=== PATIENT | male | born 1935 | race Caucasian/White ===

== ENCOUNTER 2019-04-02 13:27 | Observation (INO) | payer MEDICARE, BC ==
--- NOTE | 2019-04-02 13:58 | CT ---
EXAM: CT brain without contrast HISTORY: Near syncope left-sided weakness and slurred speech COMPARISON: 01/03/2004 TECHNIQUE: Multiple contiguous axial images were obtained and a CT of the brain without contrast. FINDINGS: There are scattered hypodensities in the subcortical and periventricular white matter consi stent with small vessel ischemic disease. There is no evidence of hydrocephalus, intracranial hemorrhage, or extra-axial fluid collection. The calvarium and overlying soft tissues are unremarkable. The visualized paranasal sinuses and masto id air cells are well aerated. IMPRESSION: No evidence of acute intracranial abnormality
[2019-04-02 14:22] LABS: #Basophils 0.1 thou/uL (0.0-0.2); #Eosinphils 0.3 thou/uL (0.0-0.7); #Lymphocytes 1.2 thou/uL (1.20-3.40); #Neutrophils 4.7 thou/uL (1.40-6.50); %Basophils 0.9 % (0.0-1.0); %Eosinophils 3.9 % (0.0-10.0); %Lymphocytes 17.1 % (21.0-51.0); %Monocytes 13.1 % (0.0-10.0); Hemoglobin 14.9 g/dL (14.0-18.0); Mean Corpuscular Hemoglobin 31.8 pg (27.0-31.0); Mean Corpuscular Volume 96.6 fL (78.0-98.0); Mean Platelet Volume 6.9 fL (7.4-10.4); Platelet Count 254 thou/uL (130-400); RBC Distribution Width 12.8 % (11.5-14.5); Red Blood Cell (RBC) Count 4.69 mill/uL (4.70-6.10); White Blood Cell (WBC) Count 7.3 thou/uL (4.8-10.8)
[2019-04-02 14:35] LABS: INR-International Normal Ratio 2.5; PTT 39.2 SEC (22.9-36.1); Prothrombin Time 27.2 SEC (12.0-14.7)
[2019-04-02 14:44] LABS: ALT (SGPT) 18 U/L (8-55); AST (SGOT) 20 U/L (5-34); Alkaline Phosphatase 58 U/L (40-110); Anion Gap 10 mmol/L (10-20); BUN (Urea Nitrogen) 17 mg/dL (8.4-25.7); Bilirubin, Total 1.2 mg/dL (0.2-1.2); Calc. Creatinine Clearance 0 mL/min (70-130); Calcium 9.5 mg/dL (7.8-10.44); Carbon Dioxide 27 mmol/L (23-31); Chloride 100 mmol/L (98-107); Estimated GFR-MDRD 55; Globulin 2.6 g/dL (2.4-3.5); Glucose 97 mg/dL (83-110); Potassium 4.1 mmol/L (3.5-5.1); Protein, Total 6.6 g/dL (5.8-8.1); Sodium 133 mmol/L (136-145)
[2019-04-02] MEDS ORDERED: Acetaminophen 325 MG TAB PO PRN (17:22)
[2019-04-02] MEDS ORDERED: Ondansetron ODT 4 MG TAB SL PRN (17:22)
[2019-04-02] MEDS ORDERED: Ondansetron PF 4 MG/2 ML Vial IVP PRN (17:22)
[2019-04-02] MEDS: Simvastatin 5 MG TAB PO SCH (20:26)
--- NOTE | 2019-04-03 00:13 | HP ---
PRIMARY CARE PHYSICIAN: At [facility]. CHIEF COMPLAINT: Left-sided weakness, slurred speech. HISTORY OF PRESENT ILLNESS: Mr. Cuadra is a pleasant 84-year-old man, who reported to the emergency room via EMS after he had a slow fall, the nurse at the assisted living in the cafeteria today denies any injury or weakness. When EMS arrived, they noticed that he had some left-sided weakness with some slurred speech. By the time they a loaded him up into the ambulance, his symptoms had resolved. He presented to the emergency room for further workup. Past medical history pertinent for hypertension, has an AICD, artificial heart valve, skin cancer. Brain CT showed no acute findings. Lab work largely unremarkable. Sodium was 133. The patient is on Coumadin and his INR today was 2.5, hemoglobin 14.9, hematocrit 45.3, and platelet count is 254. NIH score was 0 in the emergency room. The patient was admitted to the stroke unit for further evaluation. REVIEW OF SYSTEMS: The patient reports focal left-sided weakness, mental status changes. Reports speech changes which have now resolved. Denied any chest pain, shortness of breath, abdominal pain, nausea, or vomiting. All systems reviewed and are negative unless mentioned in the HPI. PAST MEDICAL HISTORY: As above in HPI. PAST SURGICAL HISTORY: Pacemaker. 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 PSYCHIATRIC HISTORY: None. SOCIAL HISTORY: Denies any alcohol or drug use. Has no smoking history. Lives in [place] in the independent living. FAMILY HISTORY: Not significant to current symptoms. ALLERGIES: NONE. HOME MEDICATIONS: 1. Cilostazol 100 mg p.o. b.i.d. 2. Hydrochlorothiazide 25 mg p.o. daily. 3. Metoprolol 50 mg p.o. at bedtime. 4. Pravastatin 20 mg p.o. daily. 5. Ramipril 10 mg p.o. daily. 6. Coumadin 4 mg p.o. at bedtime. PHYSICAL EXAMINATION: VITAL SIGNS: Blood pressure is 124/87, pulse is 83, respirations are 20, temperature is 98.5, pO2 sats are 100% on room air. CONSTITUTIONAL: The patient is alert and oriented to person, place, and time, is in no apparent distress. HEENT: Head is atraumatic and normocephalic. Eyes; pupils are equal, round, and reactive to light. Eyelids are normal to inspection. ENT, mouth exam is normal. Mucous membranes are moist. NECK: Trachea is midline. There is no tenderness. RESPIRATORY/CHEST: Breath sounds are clear. Chest expansion is equal. CARDIOVASCULAR: Regular heart rate and rhythm. There is an audible click, but no rubs or gallops. ABDOMEN: Nontender. Bowel sounds are heard. BACK: Normal range of motion. No tenderness. EXTREMITIES: Upper extremities; normal inspection, normal range of motion, radial pulses are equal. Lower extremities; normal inspection, normal range of motion, strength is normal, pedal pulses are equal bilaterally. There is no edema noted. NEURO: There is no focal weakness or sensory deficits. The patient is alert and oriented to person, place, and time. NIH is 0. SKIN: Warm, dry, normal in color. PSYCH: Has a normal affect. DIAGNOSTIC STUDIES: EKG shows paced rhythm, beats per minute 82, conduction normal, ST segments normal, T-waves are normal. ASSESSMENT AND PLAN: 1. Transient ischemic attack. The patient is on Coumadin and INR is therapeutic. We will repeat it in the a.m. Obtain an MRI of the brain without contrast, carotid Dopplers, echocardiogram. Ask PT, OT for evaluation. We are going to ask Neurology to consult. This patient is already on Coumadin and a statin and he had transient ischemic attack symptoms and we would appreciate Dr. Blancas' recommendations. We will do neuro checks q.4 hours. Aspirin daily. 2. Chronic anticoagulation use with Coumadin. INR is therapeutic. We will repeat INR in the morning. Continue the Coumadin. 3. Hypertension. We will restart home medications. We will trend. 4. GI prophylaxis has been started. 5. Hospital course dependent on clinical findings. Job ID: [id number]
[2019-04-03 04:03] LABS: INR-International Normal Ratio 2.4; Prothrombin Time 26.4 SEC (12.0-14.7)
[2019-04-03 04:25] LABS: Cardiac Risk 4.1 (Less than 4.5)
[2019-04-03] MEDS: Ramipril 5 MG CAP PO SCH (08:13)
[2019-04-03] MEDS: Cilostazol 100 MG TAB PO SCH ×2 (08:13→16:46)
--- NOTE | 2019-04-03 08:50 | ULT ---
BILATERAL CAROTID DUPLEX ULTRASOUND: DATE: 04/03/19 HISTORY: TIA. TECHNIQUE: Whitney scale ultrasound with color flow and spectral Doppler imaging of the extracranial carotid artery systems performed bilaterally. FINDINGS: The left ICA and ECA are not clearly seen. The distal ICA is not seen. There is plaque formation on either side. The peak systolic velocity in the right ICA measures 28 cm/second with an end-diastolic velocity of 1 0 cm/second and a systolic ratio of 0.51. The peak systolic velocity in the left ICA measures 30 cm/second with an end-diastolic velocity of 13 cm/second and a systolic ratio of 0.75. Flow in both vertebral arteries remains antegrade. IMPRESSION: No definite evidence of hemodynamically significant stenosis. POS: ELISABETH
[2019-04-03] MEDS ORDERED: Hydrochlorothiazide 25 MG TAB PO SCH (09:00)
[2019-04-03 10:46] LABS: Anion Gap 11 mmol/L (10-20); BUN (Urea Nitrogen) 15 mg/dL (8.4-25.7); Calc. Creatinine Clearance 64 mL/min (70-130); Calcium 9.9 mg/dL (7.8-10.44); Carbon Dioxide 28 mmol/L (23-31); Chloride 96 mmol/L (98-107); Estimated GFR-MDRD 62; Glucose 111 mg/dL (83-110); Potassium 3.6 mmol/L (3.5-5.1); Sodium 131 mmol/L (136-145)
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
[2019-04-03] MEDS ORDERED: Warfarin Sodium 2 MG TAB PO SCH (17:00)
--- NOTE | 2019-04-03 18:25 | RAD ---
Exam: Chest one view HISTORY:Evaluate pacemaker Comparison: None FINDINGS: Pacing device: Left-sided transvenous pacemaker with lead positioned over the right atrium, right dago tricle and coronary sinus. There are sternotomy wires and mediastinal clips. Cardiac silhouette:Cardiomegaly Aorta: Unremarkable Pulmonary vessels: Normal Costophrenic angles: Clear LUNGS: No masses or consolidation. Pneumothorax: None Osseous abnormalities: None IMPRESSION: 1. No acute cardiopulmonary process 2. Left-sided transvenous pacemaker with lead position as detailed above.
[2019-04-03] MEDS: Simvastatin 5 MG TAB PO SCH (19:37)
[2019-04-03] MEDS: Acetaminophen 325 MG TAB PO PRN (19:37)
--- NOTE | 2019-04-03 19:43 | CON ---
DATE OF CONSULTATION: 04/03/2019 INDICATION FOR CONSULTATION: An 84-year-old patient, who suffered apparently a TIA and some left-sided weakness. He had some slurred speech. He has apparently had a history of AICD or pacemaker implantation. He is uncertain as to which one it is, and feeling by the size of it, it may be a pacemaker. Uncertain as to whether or not, he has had this for how many years or he may have not had changed out actually. He has had an echocardiogram, which shows a normal ejection fraction, so most likely this is a pacemaker. He has left atrial dilatation. He has undergone a CT scan, which was unremarkable. Carotid study was also unremarkable. At times, it shows that he has what appears to be a biventricular pacemaker. He has two spikes of the ventricular lead in the ventricle on the QRS and it appears that this is a biventricular device. At some times also with some of the tracing, it appears that he maybe in a sinus rhythm, and at other times, it appears to be atrial fibrillation. He may have underlying atrial fibrillation and he is pacing majority of the time. In looking back over his telemetry as well as his EKG, he appears to be pacing 100% of the time, uncertain as to whether or not, he has undergone an AVJ ablation in the past and whether he has other chronic problems. It does occasionally in one of the EKGs, appears he did have an atrial spike, so it was unclear exactly what he has and whether or not he has had an ablation in the past or not. At times, he does appear to be in sinus, but obviously it is unclear due to the artifact noted on the telemetry leads. This appears to be also ventricular pacing. It is difficult that we have not been able to determine whether or not this is a [employer] or [employer] device. He has not had a chest x-ray. I cannot tell whether by it because he has not had a chest x-ray, whether or not this is a pacemaker or defibrillator, but again it appears that most likely this is a pacemaker. He did undergo the echocardiogram. He most likely has a bioprosthetic valve instead of a mechanical valve, but again I am uncertain if he is on Coumadin. If he has a mechanical valve, then obviously, the treatment would be Coumadin. If he has a bioprosthetic valve, then we could consider some other type of medication for his anticoagulation. For oral anticoagulation, if he has atrial fibrillation, I would leave this up to the discretion of his primary switchboard operator receptionist, who is Dr. Robin Sheets at [facility]. He denies any symptoms at this time. He does have a history of hypertension, hypercholesterolemia. He denies any previous cardiac history otherwise, except for mitral valve replacement. I am uncertain as to when that was replaced and why. PAST MEDICAL HISTORY: Significant for an either pacemaker or AICD implant. He has had status post mitral valve replacement. He has had hypertension. He has skin cancers. SOCIAL HISTORY: He is . He has children, who are alive and well. There is no alcohol or tobacco use. FAMILY HISTORY: Unremarkable for any early heart disease. ALLERGIES: NONE. MEDICATIONS: Prior to admission included, 1. Cilostazol. 2. Hydrochlorothiazide. 3. Metoprolol. 4. Pravastatin. 5. Ramipril. 6. Coumadin. REVIEW OF SYSTEMS: He has hearing loss. Otherwise, 12-point review of systems is unremarkable, except what is noted in the history of present illness. PHYSICAL EXAMINATION: GENERAL: Reveals a well-developed, well-nourished gentleman in no acute distress. VITAL SIGNS: Blood pressure is 125/75, heart rate is 84 and regular. He is afebrile. Respiratory rate is 18. HEENT: Shows head to be normocephalic and atraumatic. Oral mucosa is pink and moist. NECK: Carotid pulses are present. There are no bruits. There is no JVD. The thyroid is not enlarged. CHEST: Clear to auscultation. There are no rales, rhonchi, or wheezing noted. CARDIOVASCULAR: Reveals a regular rate and rhythm at this time. There are no significant murmurs, heaves, thrills, bruits, or rubs. He does have a soft systolic murmur at the apex. Otherwise, no significant abnormalities are noted. ABDOMEN: Soft and nontender, somewhat obese and slightly tympanic, but no palpable masses or tenderness are noted. EXTREMITIES: Femoral pulses are present. Popliteal pulses are present. I could not palpate pedal pulses. There is no significant lower extremity edema. NEUROLOGIC: The patient at this time appears to be fully intact. LABORATORY DATA: Shows a hemoglobin of 14.9, WBC of 7.3, platelet count of 254, 000. His INR is 2.4. TSH is 1.2. Troponin I is negative. Potassium is 3.6, BUN of 15, creatinine is 1.12. IMPRESSION: 1. Elderly gentleman with a transient ischemic attack of uncertain etiology. If he has a mechanical valve, the INRs on the low side, would increase the Coumadin level up to maintain INR between 3 and 3.5. Otherwise, if he has a bioprosthetic valve, he could either go with different Eliquis or some Pradaxa or any other medication to his liking. 2. History of pacemaker or automatic implantable cardioverter-defibrillator implant. I believe this most likely is a pacemaker. We will try to determine which the device this is and of which company, so that we can interrogate the device. 3. History of a mitral valve replacement, but the most likely this may be a bioprosthetic valve. I will review the echocardiogram again to see if I can determine if this is a mechanical valve or not. 4. History of hypertension. This is under good control at this time. 5. History of hypercholesterolemia. We will continue his pravastatin. Further care of the patient will depend on whether or not we see any other abnormalities, but otherwise depending on the what type of valve it is, whether or not we will continue him on the same Coumadin. He is already taking Pletal as well as aspirin and he has been continued on the warfarin. At this time, cardiac status appears to be otherwise stable. I have no further recommendations until I know what kind of device this gentleman has and whether or not he has a bioprosthetic or mechanical mitral valve. Job ID: [id number] [facility]
--- NOTE | 2019-04-03 22:30 | PDOC.HOSPP ---
- Subjective Encounter Date: 04/03/19 Encounter Time: 14:00 Subjective: The patient states he wants to go home, feels great. No longer has any weakness in arms. Pacemaker attempted to be interrogated but patient did not know the appropriate company. He has pacemaker placed, but he doesn't remember why. Son doesn't know why either Slurred speech that he had yesterday resolved within three hours. - Objective Vital Signs & Weight: Vital Signs (12 hours) Temp Pulse Resp BP BP BP Pulse Ox 04/03/19 20:00 97.8 F 83 16 111/69 95 04/03/19 15:29 98.7 F 84 18 125/75 94 L 04/03/19 13:00 137/91 H 121/87 126/85 04/03/19 12:00 98.1 F 80 16 116/77 96 Weight Weight 209 lb 11.2 oz I&O: 04/02/19 04/03/19 04/04/19 06:59 06:59 06:59 Intake Total 510 Balance 510 Result Diagrams: 04/02/19 14:13 04/03/19 10:12 Hospitalist ROS - Review of Systems Constitutional: denies: fever, chills - Medication Medications: Active Medications Generic Name Dose Route Start Last Admin Trade Name Freq PRN Reason Stop Dose Admin Acetaminophen 650 mg 04/03/19 19:34 04/03/19 19:37 Tylenol PO 650 mg Q6H PRN Administration Headache/Fever Cilostazol 100 mg 04/03/19 07:30 04/03/19 16:46 Pletal PO 100 mg BID-AC DAVE Administration Hydrochlorothiazide 25 mg 04/03/19 09:00 04/03/19 08:13 Hydrochlorothiazide PO 25 mg DAILY DAVE Administration Metoprolol Succinate 50 mg 04/02/19 21:00 04/03/19 19:38 Toprol Xl PO 50 mg HS DAVE Administration Ramipril 10 mg 04/03/19 09:00 04/03/19 08:13 Altace PO 10 mg DAILY DAVE Administration Simvastatin 10 mg 04/02/19 21:00 04/03/19 19:37 Zocor PO 10 mg HS DAVE Administration Warfarin Sodium 4 mg 04/03/19 17:00 04/03/19 16:47 Coumadin PO 4 mg SuTuThFrSa DAVE Administration - Exam General Appearance: NAD, awake alert Eye: PERRL, anicteric sclera ENT: normocephalic atraumatic, no oropharyngeal lesions Neck: supple, symmetric, no JVD, no thyromegaly Heart: RRR, no murmur, no gallops, no rubs Respiratory: CTAB, no wheezes, no rales, no ronchi Gastrointestinal: soft, non-tender, non-distended, normal bowel sounds, no hepatomegaly, no splenomegaly, no bruit Extremities: no cyanosis, no clubbing, no edema Skin: normal turgor, no lesions Neurological: cranial nerve grossly intact, normal sensation to touch, no weakness, no focal deficits, no new deficit Musculoskeletal: normal tone, normal strength, no muscle wasting Hosp A/P - Plan CT brain: no acute disease Carotid Doppler: no significant stenosis Chest X ray: left sided transvenous pacemaker ECHO: EF 55-60%, mild - moderate AR, LA dilation, mild TR This is an 84 year old male with past medidcal history of pacemaker for unclear reason who presented with left sided weakness and slurred speech TIA - patient presented with left sided weakness and slurred speech, now resolved. CT head showed no acute disease. MRI brain can't be done due to pacemaker. ECHO shows no thrombus - neurology consulted, recommended cardiology evaluation. Cardiology consulted, currently pending pacemaker interrogation - coumadin to be adjusted depending on type of valve (bioprosthetic or mechanical) - continue aspirin, statin Hyponatremia - sodium 131, will d/c HCTZ Hypertension - on HCTZ, ramipril, metoprolol - will d/c HCTZ due to soft BP 92-110 and hyponatremia - continue ramipril and metoprolol PAD? - continue cilostazol Dispo: likely d/c tomorrow pending pacemaker interrogation
[2019-04-03] MEDS ORDERED: Aspirin 81 mg Enteric Coated Tablet PO SCH (23:00)
[2019-04-04 06:13] LABS: Hemoglobin 14.9 g/dL (14.0-18.0); Mean Corpuscular HGB CONC 33.1 g/dL (32.0-36.0); Mean Corpuscular Hemoglobin 31.5 pg (27.0-31.0); Mean Platelet Volume 7.4 fL (7.4-10.4); Platelet Count 246 thou/uL (130-400); RBC Distribution Width 12.6 % (11.5-14.5); Red Blood Cell (RBC) Count 4.74 mill/uL (4.70-6.10); White Blood Cell (WBC) Count 10.5 thou/uL (4.8-10.8)
[2019-04-04 06:32] LABS: Anion Gap 13 mmol/L (10-20); BUN (Urea Nitrogen) 15 mg/dL (8.4-25.7); Calc. Creatinine Clearance 68 mL/min (70-130); Calcium 9.6 mg/dL (7.8-10.44); Carbon Dioxide 22 mmol/L (23-31); Chloride 100 mmol/L (98-107); Estimated GFR-MDRD 67; Glucose 101 mg/dL (83-110); Sodium 131 mmol/L (136-145)
[2019-04-04] MEDS: Ramipril 5 MG CAP PO SCH (08:21)
[2019-04-04] MEDS: Cilostazol 100 MG TAB PO SCH (08:21)
[2019-04-04 08:35] LABS: INR-International Normal Ratio 2.1
[2019-04-04] MEDS ORDERED: Aspirin 81 mg Enteric Coated Tablet PO SCH ×2 (09:00)
--- NOTE | 2019-04-04 09:52 | PDOC.CPN ---
- Subjective Date: 04/04/19 Time: 09:52 Interval history: The pt seen and examined. No overnight events. No cardiac complaints. He would like to go home since he does not have any symptoms at this moment. - Objective Allergies/Adverse Reactions: Allergies Allergy/AdvReac Type Severity Reaction Status Date / Time No Known Allergies Allergy Verified 04/02/19 17:36 Visit Medications: Current Medications Acetaminophen (Tylenol) 650 mg PO Q6H PRN PRN Reason: Headache/Fever Last Admin: 04/03/19 19:37 Dose: 650 mg Aspirin (Ecotrin) 81 mg PO DAILY [facility] Last Admin: 04/04/19 08:21 Dose: 81 mg Cilostazol (Pletal) 100 mg PO BID-AC [facility] Last Admin: 04/04/19 08:21 Dose: 100 mg Metoprolol Succinate (Toprol Xl) 50 mg PO [facility] Last Admin: 04/03/19 19:38 Dose: 50 mg Ramipril (Altace) 10 mg PO DAILY [facility] Last Admin: 04/04/19 08:21 Dose: 10 mg Simvastatin (Zocor) 10 mg PO [facility] Last Admin: 04/03/19 19:37 Dose: 10 mg Sodium Chloride (Flush - Normal Saline) 10 ml IVF PRN PRN PRN Reason: Saline Flush Warfarin Sodium (Coumadin) 4 mg PO SuTuThFrSa [facility] Last Admin: 04/03/19 16:47 Dose: 4 mg Warfarin Sodium (Coumadin) 2 mg PO [facility] Vital Signs & Weight: Vital Signs Temp Pulse Resp BP BP Pulse Ox 04/04/19 08:21 119/78 04/04/19 08:00 98.5 F 85 18 119/78 96 04/04/19 04:00 98.2 F 83 16 121/89 94 L 04/03/19 23:57 98 F 81 16 113/72 97 Weight 209 lb 11.2 oz - Physical Exam General: alert & oriented x3 HEENT: mucus membranes moist Neck: supple neck Cardiac: regular rate and rhythm, S1/S2 Lungs: clear to auscultation, decreased breath sounds Abdomen: unremarkable Extremities: no cyanosis Skin: clear Musculoskeletal: normal range of motion - Labs Result Diagrams: 04/04/19 05:46 04/04/19 05:46 Troponin/CKMB Troponin I Less than 0.010 ng/mL (< 0.028) 04/02/19 14:13 - Telemetry Sinus rhythms and dysrhythmias: other (V paced) - Assessment/Plan Assessment/Plan: 1. TIA with Lt weakness and dysphagia - resolved in [address] head negative; On Coumadin for unknown reason (possible due to Hx of MVR?) 2. HTN - stable with current med 3. HLD - 4. Hx of MVR with unknown type of valve (bioprosthetic or mechanical?) - since the pt is on Coumadin, possible Mechanical? If so, INR should be 2.5-3.5. 5. [employer] BiV PM by Dr Smith at [facility] in 08/2017 (according to PM interrogation report) - No abnormal arrhythmia episodes; 6. Hyponatremia - HCTZ was d/sachin MAR reviewed * From Cardiac standpoint, the pt is stable to d/c home. The pt should f/u with Dr Sheets at [facility] for cardiac F/u within 2-4 wks. * The pt must notify his doctor who manage his INR level (since unknow reason, his Coumadin dose cannot be adjusted at this moment)
[2019-04-04 12:12] VITALS: BP 146/83; TEMP 98.6
[2019-04-04] MEDS: Acetaminophen 325 MG TAB PO PRN (12:30)
--- NOTE | 2019-04-05 08:11 | CON ---
DATE OF CONSULTATION: ADDENDUM: It appears that this gentleman does not have MVR. In my opinion, there is no mitral valve replacement. It appears that perhaps this is an aortic valve that he has had replaced and appears to be a bioprosthetic valve and appears to be functioning normally. Job ID: [id number] [facility]
[2019-04-05] MEDS ORDERED: Warfarin Sodium 2 MG TAB PO SCH (17:00)
== END 2019-04-04 14:39 | disposition home or self-care (01) ==
LOC: ERS 13:27 → 2SE 16:09
PROVIDERS: ADMIT Internal Medicine; ATTEND Internal Medicine
DX: G45.9 Transient cerebral ischemic attack, unspecified (principal); I10 Essential (primary) hypertension; E78.5 Hyperlipidemia, unspecified; E78.00 Pure hypercholesterolemia, unspecified; E87.1 Hypo-osmolality and hyponatremia; Z79.01 Long term (current) use of anticoagulants; Z79.899 Other long term (current) drug therapy; Z95.0 Presence of cardiac pacemaker; Z95.2 Presence of prosthetic heart valve
CPT/HCPCS: 70450; 71045; 80048 ×2; 80053; 80061; 84443; 84484; 85025; 85027; 85610 ×3; 85730; 93005; 93306; 93880; 99285; G0378 ×4; 36415

== ENCOUNTER 2021-04-08 02:06 | Inpatient (IN) | payer MEDICARE ==
[2021-04-08 02:51] LABS: Hemoglobin 14.4 g/dL (14.0-18.0); Mean Corpuscular HGB CONC 34.1 g/dL (32.0-36.0); Mean Corpuscular Hemoglobin 32.3 pg (27.0-31.0); Mean Corpuscular Volume 94.8 fL (78.0-98.0); Mean Platelet Volume 6.7 fL (7.4-10.4); Platelet Count 338 thou/uL (130-400); RBC Distribution Width 12.2 % (11.5-14.5); Red Blood Cell (RBC) Count 4.46 mill/uL (4.70-6.10); White Blood Cell (WBC) Count 10.3 thou/uL (4.8-10.8)
[2021-04-08 03:08] LABS: Band 1 % (5-11); Lymphocytes 4 % (21-51); MDiff Complete? YES; Monocytes 15 % (0-10); Neutrophil 80 % (42-75); Platelet Morphology Comment Appears Adequate; RBC Morphology Normal
[2021-04-08 03:24] LABS: ALT (SGPT) 27 U/L (8-55); AST (SGOT) 34 U/L (5-34); Albumin 3.3 g/dL (3.4-4.8); Alkaline Phosphatase 55 U/L (40-110); BUN (Urea Nitrogen) 13 mg/dL (8.4-25.7); Bilirubin, Total 1.2 mg/dL (0.2-1.2); Calc. Creatinine Clearance 0 mL/min (70-130); Calcium 8.8 mg/dL (7.8-10.44); Carbon Dioxide 22 mmol/L (23-31); Chloride 100 mmol/L (98-107); Glucose 117 mg/dL (83-110); Magnesium 1.6 mg/dL (1.6-2.6); Potassium 3.9 mmol/L (3.5-5.1); Protein, Total 6.3 g/dL (5.8-8.1); Sodium 132 mmol/L (136-145)
[2021-04-08 03:56] LABS: Anion Gap 14 mmol/L (10-20)
[2021-04-08] MEDS ORDERED: Diltiazem HCl 125 MG, Admixture Fee 1 EACH in Sodium Chloride 0.9% 100 ML IVPB SCH (04:45)
[2021-04-08 04:58] LABS: Bacteria/HPF None Seen HPF (None Seen); Bilirubin Negative (Negative); Blood, Urine 2+ (Negative); Clarity Clear (Clear); Glucose, Urine (Dipstick) Normal (Negative); Ketone, Urine Negative (Negative); Leukocyte Negative Leu/uL (Negative); Nitrite Negative (Negative); Protein, Urine (Dipstick) 50 mg/dL (Neg-Trace); RBC/HPF 21-50 HPF (0-3); Squamous Epithelial 0-3 HPF (0-3); Urobilinogen Normal mg/dL (Less than 2); pH, Urine 6.5 (5.0-9.0)
[2021-04-08] MEDS ORDERED: Acetaminophen 500 MG TAB PO PRN (05:52)
[2021-04-08 05:59] LABS: Troponin I 0.041 ng/mL (< 0.028)
[2021-04-08 06:36] LABS: INR-International Normal Ratio 4.6
[2021-04-08 07:53] VITALS: BMI 28.0
[2021-04-08] MEDS ORDERED: Atorvastatin Calcium 10 MG TAB PO SCH (09:00)
[2021-04-08] MEDS ORDERED: Amlodipine 5 MG TAB PO SCH (09:00)
[2021-04-08] MEDS ORDERED: Amlodipine 10 MG TAB PO SCH (09:00)
[2021-04-08] MEDS: Multivit, Therapeutic 1 TAB PO SCH (09:16)
[2021-04-08] MEDS: Magnesium Oxide 400 MG TAB PO SCH (09:16)
[2021-04-08] MEDS: Ramipril 5 MG CAP PO SCH (09:16)
[2021-04-08 09:30] LABS: Troponin I 0.023 ng/mL (< 0.028)
[2021-04-08] MEDS: Sodium Chloride 1 GM TAB PO SCH ×2 (11:08→21:36)
[2021-04-08] MEDS ORDERED: Diltiazem HCl SR 60 mg Capsule PO SCH (14:00)
[2021-04-08] MEDS ORDERED: FLU VACC QS2021-22(65YR UP)/PF 240 MCG/0.7 ML SYRINGE IM ONE (16:00)
[2021-04-08 16:52] LABS: SARS-CoV-2 PCR by NAA Not Detected (NotDetected)
[2021-04-08] MEDS ORDERED: Warfarin Sodium 2 MG TAB PO SCH ×2 (17:00)
[2021-04-08] MEDS: Atorvastatin Calcium 10 MG TAB PO SCH (20:21)
[2021-04-09 05:23] LABS: Anion Gap 13 mmol/L (10-20); BUN (Urea Nitrogen) 15 mg/dL (8.4-25.7); Calc. Creatinine Clearance 67 mL/min (70-130); Calcium 8.8 mg/dL (7.8-10.44); Carbon Dioxide 21 mmol/L (23-31); Chloride 102 mmol/L (98-107); Glucose 135 mg/dL (83-110); Potassium 3.8 mmol/L (3.5-5.1); Sodium 132 mmol/L (136-145)
[2021-04-09 05:40] LABS: Hemoglobin 14.3 g/dL (14.0-18.0); Lymphocytes 4 % (21-51); MDiff Complete? YES; Mean Corpuscular HGB CONC 35.7 g/dL (32.0-36.0); Mean Corpuscular Hemoglobin 33.4 pg (27.0-31.0); Mean Corpuscular Volume 93.5 fL (78.0-98.0); Monocytes 9 % (0-10); Neutrophil 85 % (42-75); Platelet Count 345 thou/uL (130-400); Platelet Morphology Comment Appears Adequate; RBC Distribution Width 12.1 % (11.5-14.5); RBC Morphology Normal; Reactive Lymphocytes 2 % (0-10); Red Blood Cell (RBC) Count 4.27 mill/uL (4.70-6.10); White Blood Cell (WBC) Count 12.8 thou/uL (4.8-10.8)
[2021-04-09] MEDS ORDERED: Magnesium 2 GM/50 ML 2 GM in Premix Bag 1 BAG IVPB SCH (09:15)
[2021-04-09] MEDS: Multivit, Therapeutic 1 TAB PO SCH (09:34)
[2021-04-09] MEDS: Magnesium Oxide 400 MG TAB PO SCH (09:34)
[2021-04-09] MEDS: Ramipril 5 MG CAP PO SCH (09:34)
[2021-04-09 10:18] LABS: Prothrombin Time 46.9 sec (12.0-14.7)
[2021-04-09 10:21] LABS: Magnesium 1.9 mg/dL (1.6-2.6)
[2021-04-09] MEDS: Sodium Chloride 1 GM TAB PO SCH ×2 (10:29→20:52)
[2021-04-09 10:41] LABS: INR-International Normal Ratio 4.9
[2021-04-09] MEDS: Atorvastatin Calcium 10 MG TAB PO SCH (20:52)
[2021-04-10 05:53] LABS: Band 4 % (5-11); Hemoglobin 14.8 g/dL (14.0-18.0); Lymphocytes 11 % (21-51); MDiff Complete? YES; Mean Corpuscular HGB CONC 34.1 g/dL (32.0-36.0); Mean Corpuscular Hemoglobin 32.2 pg (27.0-31.0); Mean Corpuscular Volume 94.5 fL (78.0-98.0); Mean Platelet Volume 6.8 fL (7.4-10.4); Monocytes 14 % (0-10); Neutrophil 71 % (42-75); Platelet Count 366 thou/uL (130-400); Platelet Morphology Comment Appears Adequate; RBC Distribution Width 12.2 % (11.5-14.5); RBC Morphology Normal; White Blood Cell (WBC) Count 12.2 thou/uL (4.8-10.8)
[2021-04-10 06:05] LABS: Anion Gap 14 mmol/L (10-20); BUN (Urea Nitrogen) 13 mg/dL (8.4-25.7); Calc. Creatinine Clearance 74 mL/min (70-130); Calcium 8.2 mg/dL (7.8-10.44); Carbon Dioxide 20 mmol/L (23-31); Chloride 103 mmol/L (98-107); Glucose 105 mg/dL (83-110); Potassium 3.5 mmol/L (3.5-5.1); Sodium 133 mmol/L (136-145)
[2021-04-10 09:04] LABS: INR-International Normal Ratio 3.9; PTT 74.3 sec (22.9-36.1); Prothrombin Time 39.5 sec (12.0-14.7)
[2021-04-10] MEDS: Ramipril 5 MG CAP PO SCH (09:49)
[2021-04-10] MEDS: Sodium Chloride 1 GM TAB PO SCH (09:50)
[2021-04-10] MEDS: Multivit, Therapeutic 1 TAB PO SCH (09:50)
[2021-04-10] MEDS: Magnesium Oxide 400 MG TAB PO SCH (09:50)
[2021-04-10 12:11] VITALS: BP 157/89; TEMP 98.9
[2021-04-10] MEDS ORDERED: FLU VACC QS2021-22(65YR UP)/PF 240 MCG/0.7 ML SYRINGE IM ONE (16:00)
== END 2021-04-10 14:34 | DRG 309 ==
LOC: ERS 02:06 → 2NO 04:41
PROVIDERS: ADMIT Family Medicine; ATTEND Family Medicine
DX: I48.20 Chronic atrial fibrillation, unspecified (principal); E87.1 Hypo-osmolality and hyponatremia; Z20.822 Contact with and (suspected) exposure to COVID-19; Z66 Do not resuscitate; I44.7 Left bundle-branch block, unspecified; I25.10 Atherosclerotic heart disease of native coronary artery without angina pectoris; I73.9 Peripheral vascular disease, unspecified; E83.42 Hypomagnesemia; I10 Essential (primary) hypertension; G47.31 Primary central sleep apnea; E78.5 Hyperlipidemia, unspecified; Z88.1 Allergy status to other antibiotic agents; Z79.01 Long term (current) use of anticoagulants; Z79.899 Other long term (current) drug therapy; Z95.2 Presence of prosthetic heart valve; S51.811A Laceration without foreign body of right forearm, initial encounter; X58.XXXA Exposure to other specified factors, initial encounter
CPT/HCPCS: 36415; 70450; 72125; 80048; 80053; 81003; 81015; 83735; 83880; 84484; 85025; 85610; 85730; 93005; J3475; J3490; U0003; U0005

== ENCOUNTER 2021-05-18 17:26 | Inpatient (IN) | payer MEDICARE ==
[2021-05-18] MEDS ORDERED: Boostrix 0.5 ML (Tdap) VIAL ONE (18:08)
[2021-05-18 18:30] LABS: #Basophils 0.1 thou/uL (0.0-0.2); #Eosinphils 0.5 thou/uL (0.0-0.7); #Lymphocytes 1.2 thou/uL (1.20-3.40); #Monocytes 0.9 thou/uL (0.11-0.59); #Neutrophils 7.3 thou/uL (1.40-6.50); %Basophils 0.5 % (0.0-1.0); %Eosinophils 4.8 % (0.0-10.0); %Lymphocytes 12.2 % (21.0-51.0); %Neutrophils 73.6 % (42.0-75.0); Mean Corpuscular HGB CONC 32.7 g/dL (32.0-36.0); Mean Corpuscular Hemoglobin 30.7 pg (27.0-31.0); Mean Corpuscular Volume 93.8 fL (78.0-98.0); Mean Platelet Volume 6.9 fL (7.4-10.4); Platelet Count 353 thou/uL (130-400); RBC Distribution Width 13.5 % (11.5-14.5); Red Blood Cell (RBC) Count 5.21 mill/uL (4.70-6.10)
[2021-05-18 18:44] LABS: INR-International Normal Ratio 1.6; PTT 28.5 sec (22.9-36.1); Prothrombin Time 18.8 sec (12.0-14.7)
[2021-05-18 18:51] LABS: ALT (SGPT) 23 U/L (8-55); AST (SGOT) 25 U/L (5-34); Albumin 4.4 g/dL (3.4-4.8); Alkaline Phosphatase 103 U/L (40-110); Anion Gap 13 mmol/L (10-20); BUN (Urea Nitrogen) 13 mg/dL (8.4-25.7); Calc. Creatinine Clearance 0 mL/min (70-130); Calcium 10.1 mg/dL (7.8-10.44); Carbon Dioxide 24 mmol/L (23-31); Chloride 101 mmol/L (98-107); Globulin 3.8 g/dL (2.4-3.5); Glucose 125 mg/dL (83-110); Potassium 4.2 mmol/L (3.5-5.1); Protein, Total 8.2 g/dL (5.8-8.1); Sodium 134 mmol/L (136-145)
[2021-05-18] MEDS ORDERED: Fentanyl 100 MCG/2 ML VIAL ONE (18:59)
[2021-05-18] MEDS ORDERED: Promethazine HCl 25 MG/ML VIAL IM PRN (19:19)
[2021-05-18] MEDS ORDERED: Lorazepam 2 MG/ML VIAL SLOW IVP PRN (19:19)
[2021-05-18] MEDS ORDERED: Ondansetron PF 4 MG/2 ML Vial IVP PRN (19:19)
[2021-05-18] MEDS ORDERED: traMADol HCl 50 MG TAB PO PRN (19:21)
[2021-05-18] MEDS ORDERED: Morphine 4 MG/ML VIAL SLOW IVP PRN (19:30)
[2021-05-18] MEDS ORDERED: Acetaminophen 500 MG TAB ONE (19:40)
[2021-05-18] MEDS ORDERED: Phytonadione 5 MG TAB PO SCH ×2 (19:45→22:00)
[2021-05-18 20:16] LABS: Bilirubin Negative (Negative); Blood, Urine Negative (Negative); Clarity Clear (Clear); Glucose, Urine (Dipstick) Normal (Negative); Ketone, Urine Negative (Negative); Leukocyte Negative Leu/uL (Negative); Nitrite Negative (Negative); Protein, Urine (Dipstick) Negative (Neg-Trace); Specific Gravity, Urine 1.013 (1.002-1.036); Urobilinogen Normal mg/dL (Less than 2); pH, Urine 6.5 (5.0-9.0)
[2021-05-18] MEDS ORDERED: Cilostazol 100 MG TAB PO SCH (21:00)
[2021-05-18] MEDS ORDERED: Metoprolol Tartrate 50 MG TAB PO SCH (23:00)
[2021-05-18] MEDS: Acetaminophen 500 MG TAB PO SCH (23:26)
[2021-05-19] MEDS: Famotidine/PF 20 mg/2ml Vial SLOW IVP SCH ×3 (00:05→20:37)
[2021-05-19] MEDS: traMADol HCl 50 MG TAB PO SCH ×4 (00:06→16:59)
[2021-05-19] MEDS: Atorvastatin Calcium 10 MG TAB PO SCH ×2 (00:06→20:36)
[2021-05-19] MEDS: Senokot S 8.6-50 MG TAB PO SCH ×4 (00:08→20:36)
[2021-05-19] MEDS: Acetaminophen 500 MG TAB PO SCH ×4 (01:25→20:39)
[2021-05-19 02:47] VITALS: BMI 24.0
[2021-05-19 04:36] LABS: SARS-CoV-2 NAA Rapid Test Not Detected (NotDetected)
[2021-05-19 05:41] LABS: #Basophils 0.1 thou/uL (0.0-0.2); #Eosinphils 0.6 thou/uL (0.0-0.7); #Lymphocytes 1.2 thou/uL (1.20-3.40); #Neutrophils 12.2 thou/uL (1.40-6.50); %Basophils 0.4 % (0.0-1.0); %Eosinophils 4.1 % (0.0-10.0); %Lymphocytes 7.9 % (21.0-51.0); %Monocytes 6.7 % (0.0-10.0); Hemoglobin 14.6 g/dL (14.0-18.0); Mean Corpuscular Hemoglobin 31.2 pg (27.0-31.0); Mean Corpuscular Volume 94.5 fL (78.0-98.0); Mean Platelet Volume 6.6 fL (7.4-10.4); Platelet Count 306 thou/uL (130-400); RBC Distribution Width 13.3 % (11.5-14.5); Red Blood Cell (RBC) Count 4.68 mill/uL (4.70-6.10); White Blood Cell (WBC) Count 15.1 thou/uL (4.8-10.8)
[2021-05-19 05:59] LABS: Phosphorus 3.1 mg/dL (2.3-4.7)
[2021-05-19 06:01] LABS: INR-International Normal Ratio 1.6; PTT 29.6 sec (22.9-36.1); Prothrombin Time 19.4 sec (12.0-14.7)
[2021-05-19 06:02] LABS: Anion Gap 13 mmol/L (10-20); BUN (Urea Nitrogen) 11 mg/dL (8.4-25.7); Calc. Creatinine Clearance 65 mL/min (70-130); Calcium 9.5 mg/dL (7.8-10.44); Carbon Dioxide 21 mmol/L (23-31); Chloride 102 mmol/L (98-107); Glucose 126 mg/dL (83-110); Magnesium 1.8 mg/dL (1.6-2.6); Potassium 3.9 mmol/L (3.5-5.1); Sodium 132 mmol/L (136-145)
[2021-05-19] MEDS: Sodium Chloride 1 GM TAB PO SCH ×3 (09:09→20:36)
[2021-05-19] MEDS: Polyethylene Glycol 3350 17 GM Packet PO SCH (09:09)
[2021-05-19 10:03] LABS: INR-International Normal Ratio 1.7; PTT 30.4 sec (22.9-36.1); Prothrombin Time 19.9 sec (12.0-14.7)
[2021-05-19] MEDS: Amlodipine 5 MG TAB PO SCH (11:09)
[2021-05-19] MEDS: Magnesium Oxide 400 MG TAB PO SCH (11:11)
[2021-05-19] MEDS ORDERED: ceFAZolin Sodium/D5W 2 GM in Premix Bag 1 BAG IVPB SCH (13:00)
[2021-05-19 14:48] LABS: INR-International Normal Ratio 1.6; PTT 41.9 sec (22.9-36.1); Prothrombin Time 18.9 sec (12.0-14.7)
[2021-05-19] MEDS ORDERED: Phytonadione 5 MG TAB PO SCH (16:00)
[2021-05-19 20:17] LABS: INR-International Normal Ratio 1.5; Prothrombin Time 18.1 sec (12.0-14.7)
[2021-05-19] MEDS ORDERED: Phytonadione 5 MG in Sodium Chloride 0.9% 50 ML IVPB SCH (22:00)
[2021-05-20] MEDS: traMADol HCl 50 MG TAB PO SCH ×4 (01:10→17:30)
[2021-05-20] MEDS: Acetaminophen 500 MG TAB PO SCH ×4 (03:13→20:48)
[2021-05-20 05:40] LABS: #Basophils 0.1 thou/uL (0.0-0.2); #Eosinphils 1.3 thou/uL (0.0-0.7); #Lymphocytes 0.9 thou/uL (1.20-3.40); #Monocytes 1.4 thou/uL (0.11-0.59); #Neutrophils 9.2 thou/uL (1.40-6.50); %Basophils 0.4 % (0.0-1.0); %Eosinophils 10.2 % (0.0-10.0); %Lymphocytes 7.3 % (21.0-51.0); %Monocytes 10.6 % (0.0-10.0); %Neutrophils 71.4 % (42.0-75.0); Hemoglobin 14.4 g/dL (14.0-18.0); Mean Corpuscular HGB CONC 33.3 g/dL (32.0-36.0); Mean Corpuscular Hemoglobin 31.5 pg (27.0-31.0); Mean Corpuscular Volume 94.4 fL (78.0-98.0); Mean Platelet Volume 6.7 fL (7.4-10.4); Platelet Count 268 thou/uL (130-400); RBC Distribution Width 13.4 % (11.5-14.5); Red Blood Cell (RBC) Count 4.56 mill/uL (4.70-6.10); White Blood Cell (WBC) Count 12.9 thou/uL (4.8-10.8)
[2021-05-20 05:45] LABS: INR-International Normal Ratio 1.4; Prothrombin Time 17.1 sec (12.0-14.7)
[2021-05-20 05:46] LABS: PTT 32.2 sec (22.9-36.1)
[2021-05-20 06:08] LABS: Anion Gap 14 mmol/L (10-20); BUN (Urea Nitrogen) 9 mg/dL (8.4-25.7); Calc. Creatinine Clearance 78 mL/min (70-130); Calcium 9.4 mg/dL (7.8-10.44); Carbon Dioxide 18 mmol/L (23-31); Chloride 101 mmol/L (98-107); Glucose 96 mg/dL (83-110); Magnesium 1.6 mg/dL (1.6-2.6); Phosphorus 2.7 mg/dL (2.3-4.7); Potassium 3.6 mmol/L (3.5-5.1); Sodium 129 mmol/L (136-145)
[2021-05-20] MEDS ORDERED: Ketamine 50 MG/ML (10ML VIAL) ONE (07:10)
[2021-05-20] MEDS ORDERED: Fentanyl 100 MCG/2 ML VIAL ONE (07:26)
[2021-05-20] MEDS ORDERED: ceFAZolin 2 GM/DEX 5% 100 ML BAG ONE (08:05)
[2021-05-20] MEDS ORDERED: Tranexamic Acid 1,000 MG/10 ML VIAL ONE (08:06)
[2021-05-20] MEDS ORDERED: Vecuronium 10 MG VIAL ONE (08:20)
[2021-05-20] MEDS ORDERED: PROPOFOL 200 MG/20 ML VIAL ONE (08:20)
[2021-05-20] MEDS ORDERED: Ondansetron PF 4 MG/2 ML Vial ONE (08:20)
[2021-05-20] MEDS ORDERED: Dexamethasone 20 MG/5 ML VIAL ONE (08:20)
[2021-05-20] MEDS ORDERED: Rocuronium Bromide 10 MG/ML (10ML VIAL) ONE (08:20)
[2021-05-20] MEDS ORDERED: Glycopyrrolate 0.2 MG/ML 5 ML SYRINGE ONE ×2 (08:20)
[2021-05-20] MEDS ORDERED: Lidocaine 1% PF 5 ML VIAL ONE (08:20)
[2021-05-20] MEDS ORDERED: ePHEDrine 50 MG/ML VIAL ONE (08:20)
[2021-05-20] MEDS: Sodium Chloride 1 GM TAB PO SCH ×2 (08:39→20:47)
[2021-05-20] MEDS: Senokot S 8.6-50 MG TAB PO SCH ×2 (08:39→20:51)
[2021-05-20] MEDS ORDERED: FLU VACC QS2021-22(65YR UP)/PF 240 MCG/0.7 ML SYRINGE IM ONE (09:00)
[2021-05-20] MEDS ORDERED: Sodium Chloride 0.9% 100 ML ONE (09:12)
[2021-05-20] MEDS ORDERED: SUGAMMADEX SODIUM 200 MG/2 ML VIAL ONE (09:57)
[2021-05-20] MEDS ORDERED: Promethazine HCl 25 MG/ML VIAL IVPB PRN (10:19)
[2021-05-20] MEDS ORDERED: HYDROmorphone 2 MG/ML VIAL SLOW IVP PRN (10:19)
[2021-05-20] MEDS ORDERED: Ondansetron HCl/PF 4 MG/2 ML Vial IVP PRN (10:19)
[2021-05-20] MEDS ORDERED: Promethazine HCl 25 MG/ML VIAL IM PRN (10:19)
[2021-05-20] MEDS ORDERED: Magnesium Sulfate 4 GM in Sodium Chloride 0.9% 250 ML 250 ML IV SCH (10:30)
[2021-05-20] MEDS: Amlodipine 5 MG TAB PO SCH (11:44)
[2021-05-20] MEDS: Polyethylene Glycol 3350 17 GM Packet PO SCH (12:14)
[2021-05-20] MEDS: Magnesium Oxide 400 MG TAB PO SCH (16:37)
[2021-05-20] MEDS ORDERED: Warfarin Sodium 7.5 MG TAB PO SCH ×2 (17:00→19:56)
[2021-05-20 18:46] LABS: Actual Bicarbonate (HCO3a) 16.9 mEq/L (22-28); Base Excess (BEa) -5.9 mEq/L (-2.0 to +3.0); CO2 Tension 26.4 mmHg (35.0-45.0); Calcium, Ionized (arterial) 1.19 mmol/L (1.12-1.30); Carboxyhemoglobin (COHb) 1.1 gm% (0.0-3.0); Hemoglobin (Hb) 14.1 g/dL (14.0-18.0); O2 Tension (PaO2), arterial 74.2 mmHg (> 60.0); pH, Arterial 7.42 (7.35-7.45)
[2021-05-20] MEDS ORDERED: Furosemide 20 MG/2 ML VIAL SLOW IVP SCH (18:57)
[2021-05-20 18:58] LABS: #Lymphocytes 0.5 thou/uL (1.20-3.40); #Monocytes 0.7 thou/uL (0.11-0.59); #Neutrophils 16.1 thou/uL (1.40-6.50); %Basophils 0.2 % (0.0-1.0); %Eosinophils 0.2 % (0.0-10.0); %Monocytes 3.8 % (0.0-10.0); %Neutrophils 92.8 % (42.0-75.0); Hemoglobin 14.2 g/dL (14.0-18.0); Mean Corpuscular HGB CONC 32.2 g/dL (32.0-36.0); Mean Corpuscular Hemoglobin 30.9 pg (27.0-31.0); Mean Corpuscular Volume 95.8 fL (78.0-98.0); Mean Platelet Volume 6.5 fL (7.4-10.4); Platelet Count 268 thou/uL (130-400); RBC Distribution Width 13.5 % (11.5-14.5); Red Blood Cell (RBC) Count 4.59 mill/uL (4.70-6.10); White Blood Cell (WBC) Count 17.3 thou/uL (4.8-10.8)
[2021-05-20] MEDS ORDERED: Lorazepam 2 MG/ML VIAL SLOW IVP SCH (19:00)
[2021-05-20 19:10] LABS: PTT 34.4 sec (22.9-36.1)
[2021-05-20 19:11] LABS: INR-International Normal Ratio 1.2; Prothrombin Time 15.4 sec (12.0-14.7)
[2021-05-20] MEDS ORDERED: Sodium Chloride 0.9% 1,000 ML IV SCH ×2 (20:00→20:25)
[2021-05-20 20:05] LABS: Troponin I Less than 0.010 ng/mL (< 0.028)
[2021-05-20 20:10] LABS: Anion Gap 18 mmol/L (10-20); BUN (Urea Nitrogen) 13 mg/dL (8.4-25.7); Calc. Creatinine Clearance 65 mL/min (70-130); Calcium 9.3 mg/dL (7.8-10.44); Carbon Dioxide 12 mmol/L (23-31); Chloride 100 mmol/L (98-107); Glucose 144 mg/dL (83-110); Magnesium 2.3 mg/dL (1.6-2.6); Phosphorus 3.8 mg/dL (2.3-4.7); Potassium 4.2 mmol/L (3.5-5.1); Sodium 126 mmol/L (136-145)
[2021-05-20] MEDS: Atorvastatin Calcium 10 MG TAB PO SCH (20:48)
[2021-05-20] MEDS: Enoxaparin Sodium 80 MG/0.8 ML SYRINGE SC SCH (20:49)
[2021-05-20] MEDS: ceFAZolin Sodium/D5W 2 GM in Premix Bag 1 BAG IVPB SCH (22:15)
[2021-05-21] MEDS: Acetaminophen 500 MG TAB PO SCH ×2 (01:58→08:58)
[2021-05-21 02:29] LABS: Puncture Site RRA
[2021-05-21] MEDS: ceFAZolin Sodium/D5W 2 GM in Premix Bag 1 BAG IVPB SCH (05:20)
[2021-05-21 06:12] LABS: #Lymphocytes 0.6 thou/uL (1.20-3.40); #Monocytes 1.2 thou/uL (0.11-0.59); #Neutrophils 14.2 thou/uL (1.40-6.50); %Eosinophils 0.1 % (0.0-10.0); %Lymphocytes 3.5 % (21.0-51.0); %Monocytes 7.3 % (0.0-10.0); %Neutrophils 89.1 % (42.0-75.0); Mean Corpuscular HGB CONC 32.7 g/dL (32.0-36.0); Mean Corpuscular Hemoglobin 31.3 pg (27.0-31.0); Mean Corpuscular Volume 95.7 fL (78.0-98.0); Mean Platelet Volume 7.2 fL (7.4-10.4); Platelet Count 253 thou/uL (130-400); RBC Distribution Width 13.3 % (11.5-14.5); Red Blood Cell (RBC) Count 4.16 mill/uL (4.70-6.10)
[2021-05-21 06:23] LABS: INR-International Normal Ratio 1.2; PTT 37.2 sec (22.9-36.1); Prothrombin Time 15.8 sec (12.0-14.7)
[2021-05-21 06:33] LABS: Anion Gap 13 mmol/L (10-20); BUN (Urea Nitrogen) 17 mg/dL (8.4-25.7); Calc. Creatinine Clearance 64 mL/min (70-130); Calcium 9.3 mg/dL (7.8-10.44); Carbon Dioxide 17 mmol/L (23-31); Chloride 103 mmol/L (98-107); Glucose 139 mg/dL (83-110); Phosphorus 3.7 mg/dL (2.3-4.7); Potassium 4.1 mmol/L (3.5-5.1); Sodium 129 mmol/L (136-145)
[2021-05-21] MEDS ORDERED: Warfarin Sodium 7.5 MG TAB PO SCH (07:30)
[2021-05-21] MEDS: Magnesium Oxide 400 MG TAB PO SCH (08:58)
[2021-05-21] MEDS: Polyethylene Glycol 3350 17 GM Packet PO SCH (08:59)
[2021-05-21] MEDS: Sodium Chloride 1 GM TAB PO SCH ×2 (08:59→21:28)
[2021-05-21] MEDS: Enoxaparin Sodium 80 MG/0.8 ML SYRINGE SC SCH ×2 (08:59→21:29)
[2021-05-21] MEDS: Senokot S 8.6-50 MG TAB PO SCH ×2 (08:59→21:29)
[2021-05-21] MEDS: Amlodipine 5 MG TAB PO SCH (08:59)
[2021-05-21] MEDS ORDERED: Acetaminophen/Codeine 30-300mg Tablet PO PRN (12:43)
[2021-05-21] MEDS ORDERED: Acetaminophen 500 MG TAB PO SCH (15:00)
[2021-05-21] MEDS: Acetaminophen 325 MG TAB PO SCH ×2 (16:49→23:06)
[2021-05-21] MEDS ORDERED: Warfarin Sodium 5 MG TAB PO SCH ×2 (17:00)
[2021-05-21] MEDS: Atorvastatin Calcium 10 MG TAB PO SCH (21:28)
[2021-05-22] MEDS: Acetaminophen 325 MG TAB PO SCH ×4 (04:41→23:38)
[2021-05-22 06:08] LABS: INR-International Normal Ratio 2.1; PTT 61.1 sec (22.9-36.1); Prothrombin Time 24.2 sec (12.0-14.7)
[2021-05-22] MEDS: Senokot S 8.6-50 MG TAB PO SCH ×2 (09:01→20:50)
[2021-05-22] MEDS: Magnesium Oxide 400 MG TAB PO SCH (09:01)
[2021-05-22] MEDS: Amlodipine 5 MG TAB PO SCH (09:02)
[2021-05-22] MEDS: Polyethylene Glycol 3350 17 GM Packet PO SCH (09:02)
[2021-05-22] MEDS: Sodium Chloride 1 GM TAB PO SCH ×2 (09:08→20:49)
[2021-05-22] MEDS ORDERED: Warfarin Sodium 2.5 MG TAB PO SCH (17:00)
[2021-05-22] MEDS: Atorvastatin Calcium 10 MG TAB PO SCH (20:50)
[2021-05-23] MEDS: Acetaminophen 325 MG TAB PO SCH ×2 (05:59→11:26)
[2021-05-23 06:49] LABS: #Eosinphils 0.2 thou/uL (0.0-0.7); #Lymphocytes 1.1 thou/uL (1.20-3.40); #Monocytes 1.5 thou/uL (0.11-0.59); #Neutrophils 9.5 thou/uL (1.40-6.50); %Basophils 0.2 % (0.0-1.0); %Eosinophils 1.5 % (0.0-10.0); %Lymphocytes 8.6 % (21.0-51.0); %Monocytes 12.5 % (0.0-10.0); %Neutrophils 77.2 % (42.0-75.0); Hemoglobin 11.3 g/dL (14.0-18.0); Mean Corpuscular HGB CONC 34.4 g/dL (32.0-36.0); Mean Corpuscular Volume 93.1 fL (78.0-98.0); Mean Platelet Volume 6.7 fL (7.4-10.4); Platelet Count 281 thou/uL (130-400); RBC Distribution Width 13.5 % (11.5-14.5); Red Blood Cell (RBC) Count 3.53 mill/uL (4.70-6.10); White Blood Cell (WBC) Count 12.2 thou/uL (4.8-10.8)
[2021-05-23 07:10] LABS: Anion Gap 11 mmol/L (10-20); BUN (Urea Nitrogen) 14 mg/dL (8.4-25.7); Calc. Creatinine Clearance 79 mL/min (70-130); Calcium 8.9 mg/dL (7.8-10.44); Carbon Dioxide 22 mmol/L (23-31); Chloride 103 mmol/L (98-107); Glucose 104 mg/dL (83-110); Magnesium 1.8 mg/dL (1.6-2.6); Phosphorus 2.3 mg/dL (2.3-4.7); Potassium 3.3 mmol/L (3.5-5.1); Sodium 133 mmol/L (136-145)
[2021-05-23 07:25] LABS: INR-International Normal Ratio 2.2; PTT 59.4 sec (22.9-36.1); Prothrombin Time 24.5 sec (12.0-14.7)
[2021-05-23] MEDS: Senokot S 8.6-50 MG TAB PO SCH (07:52)
[2021-05-23] MEDS: Amlodipine 5 MG TAB PO SCH (07:53)
[2021-05-23] MEDS: Polyethylene Glycol 3350 17 GM Packet PO SCH (07:54)
[2021-05-23] MEDS: Magnesium Oxide 400 MG TAB PO SCH (07:54)
[2021-05-23] MEDS ORDERED: Magnesium 2 GM/50 ML 2 GM in Premix Bag 1 BAG IVPB SCH (08:00)
[2021-05-23] MEDS ORDERED: PHOS-NAK 1 PKT PACK PO SCH (08:00)
[2021-05-23] MEDS ORDERED: Potassium Chloride 20 MEQ TAB PO SCH (08:00)
[2021-05-23] MEDS ORDERED: Ramipril 5 MG CAP PO SCH (09:00)
[2021-05-23] MEDS ORDERED: Non-Formulary Item 1 EACH (Ramipril [Ramipril] 10 MG Capsule) PO SCH (09:00)
[2021-05-23] MEDS ORDERED: Non-Formulary Item 1 EACH (Ramipril [Ramipril] 10 MG) PO SCH (09:00)
[2021-05-23] MEDS: Sodium Chloride 1 GM TAB PO SCH (09:09)
[2021-05-23 11:57] VITALS: BP 132/80; TEMP 97.6
== END 2021-05-23 14:11 | DRG 522 ==
LOC: ERS 17:26 → SURG A 19:17
PROVIDERS: ADMIT Surgery; ATTEND Surgery
PROC: 0SRS0J9 Replacement of Left Hip Joint, Femoral Surface with Synthetic Substitute, Cemented, Open Approach (ICD-10-PCS; principal; 2021-05-20)
DX: S72.012A Unspecified intracapsular fracture of left femur, initial encounter for closed fracture (principal); I48.20 Chronic atrial fibrillation, unspecified; E87.1 Hypo-osmolality and hyponatremia; Z20.822 Contact with and (suspected) exposure to COVID-19; I10 Essential (primary) hypertension; G47.30 Sleep apnea, unspecified; I73.9 Peripheral vascular disease, unspecified; F03.90 Unspecified dementia, unspecified severity, without behavioral disturbance, psychotic disturbance, mood disturbance, and anxiety; I25.10 Atherosclerotic heart disease of native coronary artery without angina pectoris; E78.5 Hyperlipidemia, unspecified; E83.42 Hypomagnesemia; Z79.01 Long term (current) use of anticoagulants; Z95.0 Presence of cardiac pacemaker; Z88.1 Allergy status to other antibiotic agents
CPT/HCPCS: 36415; 36416; 36430; 36600; 70450; 71045; 72125; 72170; 80048; 80053; 81003; 82805; 83605; 83735; 83880; 84100; 84484; 85025; 85610; 85730; 86850; 86900; 86901; 87040; 87086; 90471; 90715; 93005; 93010; 94640; 96374; C1713; C1889; G0390; J1100; J1650; J1940; J2060; J2405; J2704; J3010; J3430; J3475; J3490; J7050; J7620; P9059; S0028; U0002